=== PATIENT | male | born 1965 | race Caucasian/White ===

== ENCOUNTER 2023-11-30 11:07 | Outpatient (CLI) | payer MEDICAID ==
[2023-11-30 15:41] LABS: CALCIUM 8.8 mg/dL (8.5-10.3)
[2023-11-30 15:54] LABS: THYROID STIMULATING HORMONE 3.6 uIU/mL (0.34-5.60)
== END 2023-11-30 11:08 | disposition home or self-care (01) ==
LOC: LAB.S 11:07
PROVIDERS: ATTEND Nurse Practitioner Family
DX: E83.52 Hypercalcemia (principal); N40.1 Benign prostatic hyperplasia with lower urinary tract symptoms; E03.9 Hypothyroidism, unspecified
CPT/HCPCS: 36415; 82310; 82330; 84153; 84443

== ENCOUNTER 2024-01-27 07:05 | Outpatient (CLI) | payer MEDICAID ==
[2024-01-27 16:13] LABS: THYROID STIMULATING HORMONE 5.96 uIU/mL (0.34-5.60)
[2024-01-27 16:20] LABS: ALBUMIN 4.4 g/dL (3.2-5.5); ALBUMIN/GLOBULIN RATIO 1.6 (1.0-2.2); ALKALINE PHOSPHATASE 39 IU/L (42-121); ALT ALANINE AMINOTRANSFERASE 25 IU/L (10-60); AST ASPARTATE AMINOTRANSFERASE 28 IU/L (10-42); BILIRUBIN,TOTAL 0.7 mg/dL (0.2-1.0); BUN - BLOOD UREA NITROGEN 33 mg/dL (6-20); CALCIUM 9.2 mg/dL (8.5-10.3); CARBON DIOXIDE - CO2 29 mmol/L (21-32); CHLORIDE 103 mmol/L (101-111); CHOL/HDL RATIO 3.2 (<5.0); CHOLESTEROL 231 mg/dL; CREATININE 1.7 mg/dL (0.6-1.3); GFR - MDRD 41 (>89); GLUCOSE 93 mg/dL (74-104); HDL CHOLESTEROL 73 mg/dL; LDL CHOLESTEROL,CALCULATED 142 mg/dL; LDL/HDL RATIO 1.9 (<3.6); POTASSIUM 3.9 mmol/L (3.5-4.5); SODIUM 139 mmol/L (135-145); TOTAL PROTEIN 7.2 g/dL (6.4-8.9); TRIGLYCERIDES 78 mg/dL; VLDL CHOLESTEROL 16 mg/dL
[2024-01-27 21:41] LABS: ESTIMATED AVERAGE GLUCOSE 105 mg/dL (70-100); HEMOGLOBIN A1c% 5.3 % (4.27-6.07)
[2024-01-28 08:11] LABS: CALCIUM IONIZED SERUM 4.4 mg/dL (4.5-5.6)
== END 2024-01-27 07:06 | disposition home or self-care (01) ==
LOC: LAB.S 07:05
PROVIDERS: ATTEND Nurse Practitioner Family
DX: E78.5 Hyperlipidemia, unspecified (principal); E55.9 Vitamin D deficiency, unspecified; R73.9 Hyperglycemia, unspecified; E03.9 Hypothyroidism, unspecified; N18.31 Chronic kidney disease, stage 3a
CPT/HCPCS: 36415; 80053; 80061; 82306; 82330; 83036; 83721; 84439; 84443

== ENCOUNTER 2024-02-03 13:46 | Outpatient (CLI) | payer MEDICAID ==
--- NOTE | 2024-02-03 14:59 | Sleep Patient Instructions ---
Sleep Center Visit Summary - Patient Visit Information Reason for Visit: Initial consultation - Patient Instructions Additional Instructions: You will continue with oral appliance therapy. I have ordered a sleep study to verify efficacy of your oral appliance. Please follow up with the sleep care office after sleep study with oral appliance. - Clinic Information Contact: [facility] [address] [place] [address] [email or web address] T: [phone]
--- NOTE | 2024-02-03 16:47 | SLEEP CARE CONSULTATION ---
Information from patient questionnaire entered by Yuly Guy. I have reviewed and concur with the information entered by Yuly Guy. This document represents the service I personally performed and the decisions made by me, Martha Pérez ARNP. History of Present Illness Service Date and Time: 02/03/2024 1346 Reason for Visit: New patient Chief Complaint: reports: Insomnia, Unrefreshed sleep, Snoring, Excessive daytime sleepiness, Observed pauses in breathing, Fatigue, Frequent awakenings at night, Other (UPDATE SUPPLIES) Date of Onset: MANY YRS Usual bedtime: 2300 Time it takes to fall asleep: 30MIN Snores at night: Yes Observed to quit breathing while asleep: Yes Sleeps alone due to snoring: Yes (N/A) Number of times waking at night: 4 Reasons for waking at night: reports: Choking, Pain, Bathroom, Other (NOISE) Toss, Turn, or Twitch while sleeping: Yes Recalls having dreams: Yes Usually gets out of bed at: 0800 Feels refreshed in the morning: No Morning headache: Yes Sleepy or fatigued during the day: Yes Ever fallen asleep while driving: Yes Takes day naps: Yes Dreams during day naps: Yes Prior sleep studies: Yes Year and Where: [place], [place] 2022 Additional HPI information: ALBERT AGUIRRE was previously diagnosed to have mild, AHI 10, obstructive sleep apnea-hypopnea syndrome as seen in sleep study dated 05/11/2023 through [facility] in [place], [place] and comes in today to establish care for oral appliance therapy. He has been using an oral device since September 2023. He has not been able to get follow up with his oral appliance. He moved to [place] and was not able to do a follow up PSG to check effectiveness of oral device. - Parasomnia Symptoms Ever been unable to move upon waking from sleep: Yes Walks in sleep: No Talks in sleep: Yes Ever acted out dreams in sleep: Yes Ever felt weak in the knees when startled or emotional: No Bothered by creepy, crawly, restless sensations in legs: Yes Problems with memory or concentration: Yes Subjective Initial Colmar Sleepiness Scale score: 20 (02/03/24) Past Medical History Past Medical History: reports: Hypertension (high diastolic BP), Diabetes (pre- diabetes; diabetes insipidus), Arthritis (osteopenia), Hypothyroidism (removed thyroid/partial parathyroid glands October 2020), Anemia, Anxiety, Asthma, Other (ENLARGED PROSTE URINARY URGENCY OVERACTIVE BLADDER CHRONIC KIDNEY DISEASE, stage 3; HIGH DIASTOLIC BP; TMJ with jaw soreness; lower jaw sx to fix underbite) Social History The patient's occupation is a NOT EMPLOYED. Patient is Single and lives in . Have you smoked in the past 12 months: No Alcohol use: No Caffeine use: No Family History Family history of sleep disordered breathing: Yes Family Hx Sleep Apnea: Mother: Snoring, Sleep apnea - Treated, Father: Snoring, Sleep apnea - Treated, Sibling: Snoring, Grandparent: Snoring Allergies and Home Medications Known drug allergies: No Drug allergies reviewed: Yes Home medication list reviewed: Yes (as listed) Allergy and home medication list: Allergies No Known Drug Allergies Allergy (Verified 02/03/24 14:14) Home Medications Ascorbic Acid/Ascorbate Sodium [Vitamin C 500 mg Tablet Chew] See Rx Instructions .ROUTE .COMPLEX 02/03/24 [History] Bismuth Subsalicylate [Pepto-Bismol] See Rx Instructions .ROUTE .COMPLEX 02/03/24 [History] Calcium Citrate See Rx Instructions .ROUTE .COMPLEX 02/03/24 [History] [place] Cinonom See Rx Instructions .ROUTE .COMPLEX 02/03/24 [History] Cholecalciferol (Vitamin D3) [Vitamin D3] See Rx Instructions .ROUTE .COMPLEX 02/03/24 [History] Chromium Picolinate See Rx Instructions .ROUTE .COMPLEX 02/03/24 [History] Ensure Nutrition See Rx Instructions .ROUTE .COMPLEX 02/03/24 [History] Gamma-Aminobutyric Acid See Rx Instructions .ROUTE .COMPLEX 02/03/24 [History] Garlic Extract [Garlic] See Rx Instructions .ROUTE .COMPLEX 02/03/24 [History] Gopi Goats Milk See Rx Instructions .ROUTE .COMPLEX 02/03/24 [History] Lactobacillus Combination No.4 [Probiotic] See Rx Instructions .ROUTE .COMPLEX 02/03/24 [History] Levothyroxine [Synthroid] See Rx Instructions .ROUTE .COMPLEX 02/03/24 [History] Lions Terry See Rx Instructions .ROUTE .COMPLEX 02/03/24 [History] Lisinopril [Zestril] See Rx Instructions .ROUTE .COMPLEX 02/03/24 [History] Loperamide HCl [Imodium A-D] See Rx Instructions .ROUTE .COMPLEX 02/03/24 [History] Mecobalamin [B12 Active] See Rx Instructions .ROUTE .COMPLEX 02/03/24 [History] Melatonin/Pyridoxine HCl (B6) [Melatonin Tr 10 mg Tablet] See Rx Instructions .ROUTE .COMPLEX 02/03/24 [History] [place]-3/Dha/Epa/Fish Oil [Fish Oil 1,000 mg Softgel] See Rx Instructions .ROUTE .COMPLEX 02/03/24 [History] Prostate [place] See Rx Instructions .ROUTE .COMPLEX 02/03/24 [History] Psyllium Husk [Konsyl] See Rx Instructions .ROUTE .COMPLEX 02/03/24 [History] Reservo See Rx Instructions .ROUTE .COMPLEX 02/03/24 [History] Tumero Xl See Rx Instructions .ROUTE .COMPLEX 02/03/24 [History] Turmeric See Rx Instructions .ROUTE .COMPLEX 02/03/24 [History] Whey Protein Concentrate [Gi Protect] See Rx Instructions .ROUTE .COMPLEX 02/03/24 [History] Zinc Gluconate [Zinc] See Rx Instructions .ROUTE .COMPLEX 02/03/24 [History] oxyBUTYnin chloride [Oxybutynin Chloride] See Rx Instructions .ROUTE .COMPLEX 02/03/24 [History] Review of Systems Weight loss over past 5 years: 15 Cardiovascular: reports: high blood pressure, leg or foot swelling Respiratory: reports: shortness of breath, wheeze Gastrointestinal: reports: heartburn, difficulty swallowing, nausea, diarrhea, abdominal pain, other (LYMPHATIC COLITIS) Urinary: reports: incontinence, urgency Neurological: reports: headaches, disorientation, fainting or unconsciousness Psychiatric: reports: anxiety Ear/Nose/Throat: reports: nasal congestion, nose bleeds, dry mouth/throat, hoarseness, wisdom teeth removed Endocrine: reports: thyroid disease, sluggishness, too hot or cold, excessive thirst, increased appetite, increased urination, unexplained weakness Musculoskeletal: reports: joint pain, neck pain, back pain, muscle pain or cramping, mobility problems, other (OSTEOPENIA HIP BONE SORENESS ) Physical Exam Vital signs obtained and entered by: YULY Astorga MA Blood Pressure: 117/92 (RIGHT ARM) Cuff size: regular Heart Rate: 82 O2 Saturation: 100 Height: 5 ft 10 in Weight: 152 lb 12.8 oz Body Mass Index: 21.9 BMI Classification: Normal Neck circumference: 15 Mouth and throat: narrow oropharynx Soft palate: long Hard palate: normal Uvula: normal Uvula visualization: 0% Mallampati Class IV Tongue: enlarged in size with teeth gutierrez on lateral edges Neck: normal w/o lymphadenopathy or thyromegaly Heart: regular rate and rhythm Lungs: clear bilaterally Impression and Plan 1. Obstructive Sleep Apnea-Hypopnea Syndrome, mild. He comes in today to establish care, using an oral appliance but says he has not noticed an improvement of his symptoms. He was not able to follow-up with his last sleep specialist because he moved to [place]. He has not been able to have a follow-up PSG or even see the dentist who made his oral device in follow-up. I will order a follow-up PSG/HST to see how effective his oral appliance is doing and see him after his sleep study. Patient's apnea severity and rationale for treatment to reduce apnea, improve sleep quality and reduce cardiovascular and cerebrovascular events was reviewed. I also reviewed the benefit of consistent device use of CPAP for hypertension, pre-diabetes, anxiety. * Oral appliance * PSG with [facility] to verify efficacy of device * Notify me if snoring with mask or feeling that the pressure is too much or too little * Call this office if any problems using CPAP * Return for follow up after sleep study to verify efficacy of oral device, or sooner if concerns arise Counseling Topics: Weight loss health impact Plan: PSG with oral appliance Visit Type: In Office Time Spent with Patient (minutes): 36 Provider Statement: I spent 100% of the Face to Face Visit with the patient with greater than 50% spent counseling the patient and coordination of care.
[2024-02-03 16:54] VITALS: BP 117/92; O2SAT 100
== END 2024-02-03 13:47 | disposition home or self-care (01) ==
LOC: SC 13:46
PROVIDERS: ATTEND Nurse Practitioner Family
DX: G47.33 Obstructive sleep apnea (adult) (pediatric) (principal)
CPT/HCPCS: 99203; 99212

== ENCOUNTER 2024-02-23 12:58 | Outpatient (CLI) | payer MEDICAID | END 2024-02-23 12:59 | disposition home or self-care (01) | LOC: SC 12:58 | PROVIDERS: ATTEND Nurse Practitioner Family | DX: I10 Essential (primary) hypertension (principal) | CPT/HCPCS: 95806 ==

== ENCOUNTER 2024-03-04 10:45 | Outpatient (CLI) | payer MEDICAID | END 2024-03-04 10:46 | disposition home or self-care (01) | LOC: NS 10:45 | PROVIDERS: ATTEND Nurse Practitioner Family | DX: Z71.3 Dietary counseling and surveillance (principal); N18.31 Chronic kidney disease, stage 3a; Z68.21 Body mass index [BMI] 21.0-21.9, adult | CPT/HCPCS: 97802 ==

== ENCOUNTER 2024-03-28 12:34 | Outpatient (CLI) | payer MEDICAID | END 2024-03-28 12:35 | disposition home or self-care (01) | LOC: SC 12:34 | PROVIDERS: ATTEND Nurse Practitioner Family | DX: G47.33 Obstructive sleep apnea (adult) (pediatric) (principal); E11.9 Type 2 diabetes mellitus without complications; I10 Essential (primary) hypertension | CPT/HCPCS: 95806 ==